=== PATIENT | male | born 1955 | race Caucasian/White ===

== ENCOUNTER 2019-01-29 01:41 | Inpatient (IN) | payer OTHER ==
--- NOTE | 2019-01-28 10:52 | HISTORY AND PHYSICAL ---
DATE OF ADMISSION: January 29, 2019 IDENTIFICATION/CHIEF COMPLAINT Pedro is a 63-year old gentleman with a chief complaint of bilateral knee pain. HISTORY OF PRESENT ILLNESS Patient has a longstanding history of bilateral knee arthritis, progressively painful and debilitating, refractor to conservative care. Surgery is indicated to relieve symptoms after failure of nonoperative measures. PAST MEDICAL HISTORY 1. Occasional skipped heartbeat. 2. History of wheezing and bronchitis and COPD. 3. Low back pain. PAST SURGICAL HISTORY Bilateral knee scopes. FAMILY HISTORY Notable for mother with hypertension. SOCIAL HISTORY Notable for smoking cigars and pipes until year 1999, at which point he quit. He drinks alcohol on a rare social basis. Denies drug use. REVIEW OF SYSTEMS Otherwise unremarkable. CURRENT MEDICATIONS 1. Naproxen 500 mg b.i.d. 2. Lisinopril/Hydrochlorothiazide 20/25 mg p.o. q.d. 3. Advair inhaler b.i.d. 4. Albuterol inhaler for rescue as needed. ALLERGIES No known drug allergies. PHYSICAL EXAMINATION GENERAL: Healthy male who appears appears stated age. HEENT: Normocephalic, atraumatic. NECK: Supple. LUNGS: Clear. HEART: Regular. ABDOMEN: Soft. ORTHOPEDIC EXAMINATION Both knees have crepitus and effusion. He is stiffened on range. Gross stability is good. Extensor function is intact. Radiographs demonstrate end- stage knee DJD bilaterally. ASSESSMENT 1. Bilateral knee end-stage degenerative joint disease, progressively painful and debilitating and refractory to conservative measures. PLAN Per patient request, we are going to proceed with single-stage bilateral knee replacement. The nature of the procedure and the risks, benefits and anticipated rehabilitation course were reviewed and all of patient's questions were answered. Again, we discussed the relative merits of single-stage versus staged knee replacements and he definitely wants to proceed with the single- stage if possible. The risks of the procedure include, but are not limited to, , major medical or anesthetic complication, infection, neurovascular injury, blood transfusion, stiffness, scarring, fracture, tendon rupture, instability, implant loosening, migration of failure, persistent or recurrent pain, need for additional surgery and other unforeseen. He understands and wishes to proceed. A signed permit is placed on the chart. No guarantees are given or implied. VINH
[2019-01-28 13:44] LABS: INR 0.95
[~2019-01-29] VITALS: Ht 175.3 cm; Wt 88.5 kg
[2019-01-29] VITALS (16 sets, daily range): BP systolic 82–128; BP diastolic 59–88
[~2019-01-29 01:41] MED LIST: ALBU8.5H IH; FLUT1DIS29 IH; LISI-355 PO
[2019-01-29] MEDS ORDERED: LIDOCAINE/SOD BICARB 8.4% SYR ID ONE (06:15)
[2019-01-29] MEDS ORDERED: MIDAZOLAM 2 MG/2 ML VIAL IVP PRN (06:15)
[2019-01-29] MEDS ORDERED: ROPIVACAINE/EPI/CLONIDINE/KET 50 ML SYRINGE INJ ONE ×2 (06:15)
[2019-01-29] MEDS ORDERED: ACETAMINOPHEN 500 MG TAB PO ONE (06:15)
[2019-01-29] MEDS ORDERED: PREGABALIN 150 MG CAPSULE PO ONE (06:15)
[2019-01-29] MEDS ORDERED: FAMOTIDINE 20 MG TAB PO ONE (06:15)
[2019-01-29] MEDS ORDERED: NORMOSOL R SOLN(*) 1000 ML BAG 1,000 ML IV PRN ×2 (06:15→10:55)
[2019-01-29] MEDS ORDERED: TRANEXAMIC AC 1000 MG/10ML SDV 1,000 MG in DEXTROSE 5% 50 ML BAG 50 ML IV ONE (06:15)
[2019-01-29] MEDS ORDERED: ceFAZolin(*) 2GM/D5W 50ML 50 ML IVPB ONE (06:15)
[2019-01-29] MEDS ORDERED: CELECOXIB 200 MG CAP PO ONE (06:15)
[2019-01-29] MEDS ORDERED: PROPOFOL EMUL(*) 10MG/ML 20 ML 20 ML ONE (06:28)
[2019-01-29] MEDS ORDERED: LIDOCAINE MPF 1% 5 ML VIAL ONE (06:28)
[2019-01-29] MEDS ORDERED: ONDANSETRON 4 MG/2 ML VIAL ONE (06:28)
[2019-01-29] MEDS ORDERED: METOCLOPRAMIDE 10 MG/2 ML SDV ONE (06:28)
[2019-01-29] MEDS ORDERED: DEXAMETHASONE SOD 4 MG/ML VIAL ONE (06:28)
[2019-01-29] MEDS ORDERED: fentaNYL CITR 100 MCG/2 ML AMP ONE ×3 (06:29→11:13)
[2019-01-29] MEDS ORDERED: NS(*) 0.9% 250 ML BAG 250 ML ONE (06:40)
[2019-01-29] MEDS ORDERED: VANCOMYCIN 1 GM VIAL ONE ×2 (06:59)
[2019-01-29] MEDS ORDERED: PHENYLEPHRINE 10 MG/1 ML VIAL ONE (07:20)
[2019-01-29] MEDS ORDERED: GLYCOPYRROLATE 0.2MG/ML 1 ML INJ ONE (07:26)
[2019-01-29] MEDS ORDERED: ZOLPIDEM TARTRATE 5 MG TAB PO PRN (10:55)
[2019-01-29] MEDS ORDERED: ACETAMINOPHEN 325 MG TAB PO PRN (10:55)
[2019-01-29] MEDS ORDERED: BENZOCAINE/MENTHOL 1 EACH LOZG PO PRN (10:55)
[2019-01-29] MEDS ORDERED: diphenhydrAMINE 25 MG CAP PO PRN (10:55)
[2019-01-29] MEDS ORDERED: BISACODYL 10 MG SUPP PR PRN (10:55)
[2019-01-29] MEDS ORDERED: FLUSH 10 ML SYR IVP PRN (10:55)
[2019-01-29] MEDS ORDERED: PROMETHAZINE 25 MG/ML 1 ML AMP IVP PRN (10:55)
[2019-01-29] MEDS ORDERED: diphenhydrAMINE 50 MG/ML VIAL IVP PRN (10:55)
[2019-01-29] MEDS ORDERED: NS(*) 0.9% 1000 ML BAG 1,000 ML IV PRN (11:00)
[2019-01-29] MEDS ORDERED: ACETAMINOPHEN(*)1000 MG/100 ML 100 ML IVPB ONE (11:16)
[2019-01-29] MEDS ORDERED: ALBUTEROL 8 GM INHALER INH PRN (12:50)
--- NOTE | 2019-01-29 13:05 | Hospitalist Consultation ---
History of Present Illness Requesting Physician Dr. Doshi Reason for Consult Medical Management of Comorbidities Chief Complaint s/p bilateral knee replacement History of Present Illness He was admitted s/p bilateral knee replacement. It is reported the surgery went well and without complication. History Problems: (1) Hypertension Status: Chronic (2) COPD (chronic obstructive pulmonary disease) Status: Chronic Home Meds Reported Medications Albuterol Sulfate 90 Mcg/Act (PROAIR HFA 90 MCG/ACT) 8.5 Gm Hfa.aer.ad, 2 PUFF IH PRN PRN for SHORTNESS OF BREATH, INHALER 01/24/19 Fluticasone/Salmeterol (ADVAIR 500-50 DISKUS) 1 Each Disk.w.dev, 1 EACH IH BID 01/24/19 Lisinopril/Hydrochlorothiazide (LISINOPRIL-HCTZ 20-25 MG TAB) 1 Each Tablet, 1 EACH PO DAILY 01/24/19 Allergies: Coded Allergies: No Known Drug Allergies (Unverified , 01/24/19) Patient History: Chronic bronchitis FATHER, FH: [place] (myocardial infarction) MOTHER, FH: hypertension MOTHER, Hx Smoking: Yes (CIGARS/PIPES QUIT 20 YRS AGO) Smoking Status: Former Smoker Caffeine Intake: Coffee, Soda Caffeine/Cups Per Day: 1-2 CCD Hx Alcohol Use: Yes Hx Substance Use Disorder: No Social Drug Use: Never History of IV Drug Use: No Review of Systems All Systems Reviewed/Normal: Yes, Except as Noted Exam Vital Signs Vital Signs Date Time Temp Pulse Resp B/P (MAP) Pulse Ox O2 Delivery O2 Flow Rate FiO2 01/29/19 12:26 96 Nasal Cannula 1.0 01/29/19 12:12 67 16 117/78 (91) 01/29/19 06:13 98.7 General Appearance: Alert, Awake, No Acute Distress, Afebrile Neuro: No Gross deficits Cardiovascular: Regular Rate and Rhythm Respiratory: No Respiratory Distress, Clear to Auscultation Psych: Alert & Oriented X3, Appropriate Mood & Affect Assessment and Plan Problems: (1) Status post bilateral knee replacements Status: Acute Assessment & Plan: Followed by Dr. Doshi. He will be placed on Aspirin for DVT prophylaxis. He has no history of DVT or PE. (2) Hypertension Status: Chronic Assessment & Plan: He is on chronic treatment with Lisinopril/HCTZ. Lisinopril has been restarted with hold parameters. (3) COPD (chronic obstructive pulmonary disease) Status: Chronic Assessment & Plan: Continue chronic Advair and prn albuterol inhaler. Venous Thromboembolism Antithrombotics Is Pt On Any Antithrombotics?: No Exam Sepsis Risk: No Definite Risk Problem Qualifiers (1) Hypertension: Hypertension type: essential hypertension Qualified Codes: I10 - Essential (primary) hypertension LOURDES HYATT Jan 29, 2019 13:05
[2019-01-29] MEDS: APAP/HYDROCODONE 325/7.5 TAB PO PRN ×2 (13:44→23:27)
--- NOTE | 2019-01-29 13:51 | NUR ---
Physical Therapy Impression PT eval complete. Pt completed bed mobility with Michelle. CGA to stand at EOB with RW and side step to HOB. CPM fit on R) LE and left running 0-35 degrees. VSS throughout session on room air. Pt would like to d/c to [facility]. Physical Therapy Goals 1: Pt to complete bed mobility with Penny 2: Pt to complete transfers with Penny and 4WW 3: Pt to ambulate 150' with Penny and 4WW 4: Pt to I)ly manage CPM 5: Pt to asc/desc 1 step with SBA Patient's Goals
--- NOTE | 2019-01-29 13:55 | RADIOLOGY IMAGING REPORT ---
FAC[place] [facility] [place]IENT NAME: Pedro Montoya : 1955 MR: [id number] V: [id number] EXAM DATE: ORDERING PHYSICIAN: JACINTO JOHNSON TECHNOLOGIST: Location: [facility] - [place] Patient: Pedro Montoya : 1955 Visit/Account:[id number] Date of Sevice: 01/29/2019 ADDENDUM #1 ADDENDUM: There is an error in the first sentence in the findings section of the report. I either spoke too jalyn ckly and there was a voice recognition error or possibly misspoke, but the patient has had bilateral KNEE replacements, not hip replacements. Report Dictated By: Myron Gonzalez MD at 02/01/2019 8:51 AM Report E-Signed By: Myron Gonzalez MD at 02/01/2019 8:53 AM ORIGINAL REPORT EXAMINATION: Bilateral knees, 2 views each 01/29/2019 10:21 AM HISTORY: POST-OP PLACEMENT COMPARISON: None available FINDINGS: Status post bilateral hip replacements. Prosthetic components appear to articulate well. There is ventral postoperative soft tissue gas including gas within the joints. No significant bony finding otherwise. IMPRESSION: Status post bilateral TKAs. Report Dictated By: Myron Gonzalez MD at 01/29/2019 1:45 PM Report E-Signed By: Myron Gonzalez MD at 01/29/2019 1:46 PM WSN:[id number]
--- NOTE | 2019-01-29 14:09 | OPERATIVE REPORT 1 ---
EVENT DATE: January 29, 2019 SURGEON: Silverio Doshi MD ANESTHESIOLOGIST: Arik Lacey MD ANESTHESIA: General plus spinal. LOCOMOTIVE CRANE ENGINEER: Dominic Watson PA-C PREOPERATIVE DIAGNOSIS Bilateral knee degenerative joint disease. POSTOPERATIVE DIAGNOSIS Bilateral knee degenerative joint disease. PROCEDURE PERFORMED Bilateral single-stage total knee arthroplasty. ESTIMATED BLOOD LOSS Minimal. DRAINS None. SPECIMENS None. COMPLICATIONS None apparent. TOURNIQUET TIME On the left, 49 minutes. On the right, 52 minutes. IMPLANTS USED The left and right are both [place] Triathlon knee system. On the left, we have a 4 left PS femur, 5 standard tibial baseplate, 33 mm universal symmetric all polyethylene patella button and a 16 mm PS tibial tray liner. On the right, we have a size 4 right PS femur, size 5 standard tibial baseplate, 33 mm universal symmetric all polyethylene patella button and a 13 mm PS tibial tray liner polyethylene X3. INDICATIONS Pedro has intractable pain and disability related to end-stage knee arthritis. Surgery is indicated to relieve symptoms after failure of nonoperative measures. DESCRIPTION OF PROCEDURE The patient was taken to the operating room and placed supine on the operating table. Spinal block was administered by the anesthesiologist and general anesthesia induced. Antibiotics and TXA were administered IV. Both lower extremities were simultaneously prepped and draped in the usual sterile fashion for orthopedic surgery. The left knee was operated on first. The limb was exsanguinated with an Esmarch bandage. The tourniquet was inflated to 250 mmHg. A midline longitudinal incision was made and carried down through the skin and subcutaneous tissue to the extensor mechanism. A full-thickness flap was developed far enough medially to allow medial parapatellar arthrotomy to be performed. The patella was everted. The knee was brought into a flexed position. This was done in a very gingerly fashion as the patient is extremely stiff and tight. Subperiosteal capsular release was performed circumferentially around the upper plateau to start to balance the knee. A step drill was used to enter the distal femur. A 10-inch long alignment guide was used to engage the isthmus. Cut was set for 5 degrees of valgus relative to the anatomic axis. A 10 mm resection block was applied and pinned. Cut was made with an oscillating saw. The AP sizing guide was applied to the distal femoral cut and positioned for 3 degrees of external rotation relative to the posterior condyles. A size 4 was optimal without risk of notching. The four-in-one cutting block was applied. Anterior, posterior, posterior chamfer and anterior chamfer cuts were made respectively. A PS block was applied and centered mediolateral and the bone was resected from the box. The trial femur has nice [id number] fit. Attention was turned to tibial preparation. The extramedullary guide was applied and positioned for varus, valgus, posterior slope and rotation. He has severe symmetric erosion. The cutting block was initially set to resect 10 mm from the lateral plateau. It needs to be dropped down a little bit to show an adequate cut medially. Block is pinned. Extramedullary alignment check was made and the cut was made with an oscillating saw. The gaps were inspected at this point and appears to be adequate resection. There is an enormous amount of large osteophytes in the posterior recess. Three-quarter inch curved osteotome was used to release these off the back of the femur and these are removed, freeing up posterior recess. At this point, after osteophyte removal, gaps were balanced and resected and symmetric with no additional release required. A 5 baseplate provides optimal bony coverage on the tibia without soft tissue overhand. This was ensured along with trial liner and trial femur. The knee was brought to extension. The patella was taken from a starting thickness of 23 mm to a residual of 14 with patella clamp and oscillating saw. 33 provides optimum bony coverage without soft tissue overhang. This was placed as superior and medial as possible without overhanging the bone. Lug holes were drilled. Patella tracks nicely with a no-touch technique. Final tibial preparation to ensure appropriate rotation and translation position of component. The box was reamed. The fin is punched. The surface was lavaged. A mixture of methacrylate was made and components cemented in a single stage. Once the cement was fully polymerized, the tourniquet was deflated. Hemostasis was assured. Wound was copiously lavaged to remove all loose debris. The 16 PS tibial tray liner fills up the gap ideally, allowing the knee to drop to full extension without hyperextension, providing optimal soft tissue tension and stability. This is locked in at the baseplate. Joint was reduced and arthrotomy was closed in flexion with #2 Ethibond. After deep closure, attention was turned to the contralateral knee. Continuing on the left knee, the wound was closed with 3-0 Vicryl and the skin with a ZipLine. Identical procedure was performed on the right knee with essentially one exception, which is that a 13 PS tibial tray liner fills up the gap ideally, allowing the knee to drop to full extension without hyperextension, providing optimal soft tissue tension and stability. Otherwise, an identical procedure was performed on the right knee. The left knee was protected in a sterile stockinette during the right knee procedure and then both knees were sterilely dressed at the end of the procedure. The patient was awakened from the anesthesia and taken to the recovery room in stable condition, having tolerated the procedure well. Plan is standard TKA rehab protocol. VINH
[2019-01-29] MEDS ORDERED: ALBUTEROL SULFATE INH PRN (15:25)
[2019-01-29] MEDS: MAGNESIUM HYDROXIDE* 30ML UDCP PO PRN (15:28)
[2019-01-29] MEDS: ceFAZolin(*) 1 GM VIAL 1 GM in NS(*) 0.9% 100 ML MINI-BAG 100 ML IVPB SCH ×2 (15:28→23:19)
[2019-01-29] MEDS: SALMETEROL/FLUTIC 500/50 1 INH INH SCH (17:08)
[2019-01-29] MEDS: CELECOXIB 200 MG CAP PO SCH (17:47)
[2019-01-30 02:57] VITALS: BP 114/77
[2019-01-30] MEDS: APAP/HYDROCODONE 325/7.5 TAB PO PRN ×5 (03:43→21:25)
[2019-01-30] MEDS: SALMETEROL/FLUTIC 500/50 1 INH INH SCH ×2 (06:13→17:11)
[2019-01-30 06:33] LABS: PLATELET COUNT, AUTOMATED 257 K/uL (150-450)
[2019-01-30] MEDS: ceFAZolin(*) 1 GM VIAL 1 GM in NS(*) 0.9% 100 ML MINI-BAG 100 ML IVPB SCH (06:34)
[2019-01-30 08:12] VITALS: BP 112/73
[2019-01-30] MEDS: ASPIRIN 325 MG TAB PO SCH (08:21)
[2019-01-30] MEDS: CELECOXIB 200 MG CAP PO SCH ×2 (08:21→16:53)
[2019-01-30] MEDS: LISINOPRIL 20 MG TAB PO SCH (08:21)
--- NOTE | 2019-01-30 09:27 | NUR ---
Physical Therapy Impression Patient presents in bed and is agreeable to therapy. Patient was SBA with getting out of bed. Patient was CGA for toilet transfer. Patient instructed in gait training with FWW with cuing to stand tall and stay close to walker. Patient ambulated ~110 feet with step through gait and decreased ioana. Patient was left in bathroom on toilet with call light and nursing notified. Physical Therapy Goals 1: Pt to complete bed mobility with Penny 2: Pt to complete transfers with Penny and 4WW 3: Pt to ambulate 150' with Penny and 4WW 4: Pt to I)ly manage CPM 5: Pt to asc/desc 1 step with SBA Patient's Goals
--- NOTE | 2019-01-30 09:37 | Hospitalist Progress Note ---
Subjective Progress Notes Subjective He was admitted s/p bilateral knee replacement. He had no acute events overnight. Patient Complains of: Cardiovascular: No: Chest Pain Respiratory: No: Shortness of Breath Physical Exam Vital Signs Date Time Temp Pulse Resp B/P (MAP) Pulse Ox O2 Delivery O2 Flow Rate FiO2 01/30/19 08:42 87 01/30/19 08:32 Nasal Cannula 0.5 01/30/19 08:12 97.9 17 112/73 (86) 01/30/19 02:57 72 Intake and Output 01/30/19 01:03 Intake Total 4025 ml Output Total 450 ml Balance 3575 ml Intake Oral 1620 ml IV Total 2155 ml Other 250 ml Output Urine Total 450 ml Estimated Blood Loss 0 ml # Voids 1 General Appearance: Alert, Awake, No Acute Distress, Afebrile Neuro: No Gross deficits Cardiovascular: Regular Rate and Rhythm Respiratory: No Respiratory Distress, Clear to Auscultation Psych: Alert & Oriented X3, Appropriate Mood & Affect Result Diagram: 01/30/19 0550 Assessment and Plan Problems: (1) Status post bilateral knee replacements Status: Acute Assessment & Plan: Followed by Dr. Doshi. He will be placed on Aspirin for DVT prophylaxis. He has no history of DVT or PE. (2) Hypertension Status: Chronic Assessment & Plan: He is on chronic treatment with Lisinopril/HCTZ. Lisinopril has been restarted with hold parameters. (3) COPD (chronic obstructive pulmonary disease) Status: Chronic Assessment & Plan: Continue chronic Advair and prn albuterol inhaler. Exam Sepsis Risk: No Definite Risk Problem Qualifiers (1) Hypertension: Hypertension type: essential hypertension Qualified Codes: I10 - Essential (primary) hypertension LOURDES HYATT ENGLISH COMPOSITION TEACHER Jan 30, 2019 09:37
[2019-01-30 11:59] VITALS: BP 125/73
[2019-01-30 12:03] VITALS: Ht 175.3 cm; Wt 88.5 kg
--- NOTE | 2019-01-30 13:22 | NUR ---
Physical Therapy Impression Patient is CGA for bed mobility and CGA to min A for transfers with mod cuing to pull his feet back and bracing of B feet for safety to decrease ROF. Patient has AROM of 0 to ~70 degrees B knees. Patient was educated on use of CPM and was able to demonstrate use of control and was set at 0 to 40 degrees. Patient performed supine bed exercises including B ankle pumps, quad and glute sets, SAQs, and heel slides all x 10 reps with 5 second hold on quad and glute sets. Patient instructed in gait training with FWW with cuing for posture and increased B equal step length. Patient needed CGA for safety due to decreased balance and increased risk of falling due to B TKA. Patient would benefit from computer terminal operator care due to the increased risk of falling due to balance issues with having B TKA's. Patient does live alone which is a risk factor for risk of falling. Physical Therapy Goals 1: Pt to complete bed mobility with Penny 2: Pt to complete transfers with Penny and 4WW 3: Pt to ambulate 150' with Penny and 4WW 4: Pt to I)ly manage CPM 5: Pt to asc/desc 1 step with SBA Patient's Goals
[2019-01-30] MEDS: DIAZEPAM 5 MG TAB PO PRN ×2 (15:36→22:33)
[2019-01-30 15:37] VITALS: BP 119/69
[2019-01-30] MEDS: MAGNESIUM HYDROXIDE* 30ML UDCP PO PRN (15:46)
[2019-01-30 20:23] VITALS: BP 124/67
[2019-01-31 00:25] VITALS: BP 116/57
[2019-01-31] MEDS: APAP/HYDROCODONE 325/7.5 TAB PO PRN ×3 (01:26→10:10)
[2019-01-31 04:05] VITALS: BP 128/72
[2019-01-31] MEDS: DIAZEPAM 5 MG TAB PO PRN (04:30)
[2019-01-31] MEDS: SALMETEROL/FLUTIC 500/50 1 INH INH SCH (05:34)
[2019-01-31 06:31] LABS: PLATELET COUNT, AUTOMATED 217 K/uL (150-450)
[2019-01-31 07:28] VITALS: BP 123/71
[2019-01-31] MEDS: LISINOPRIL 20 MG TAB PO SCH (08:49)
[2019-01-31] MEDS: ASPIRIN 325 MG TAB PO SCH (08:49)
[2019-01-31] MEDS: CELECOXIB 200 MG CAP PO SCH (08:49)
--- NOTE | 2019-01-31 10:14 | NUR ---
ECF Referral - Obtained preauthorization for 8 days of skilled rehab. Met with patient who stated he would need much more than that, explained the rehab philosophy, schedule, care conference etc. Encouraged to not focus on how long he can stay but how much better he can become. Seemed fixated on only having 8 days, "If I had known, I wouldn't have done so well yesterday." Discussed progress needing to be made, not to worry, just focus on improving. PASRR negative - can be admitted for skilled rehab once medically cleared.
--- NOTE | 2019-01-31 11:45 | Transfer Summary (ECF/SWB) ---
Transfer Summary (ECF/SWB) Problems: (1) Status post bilateral knee replacements Status: Acute Assessment & Plan: Followed by Dr. Doshi. He was placed on Aspirin for DVT prophylaxis. He has no history of DVT or PE. He has decreased hemoglobin post- operatively, will continue to monitor on ECF. (2) Hypertension Status: Chronic Assessment & Plan: He is on chronic treatment with Lisinopril/HCTZ. Lisinopril has been restarted with hold parameters. (3) COPD (chronic obstructive pulmonary disease) Status: Chronic Assessment & Plan: Continue chronic Advair and prn albuterol inhaler. Latest Vital Signs Vital Signs Date Time Temp Pulse Resp B/P (MAP) Pulse Ox O2 Delivery O2 Flow Rate FiO2 01/31/19 10:44 89 Room Air 01/31/19 07:28 98.0 75 16 123/71 (88) Result Diagram: 01/31/19 0534 Condition: Improved Disposition: SNF/NH Treatment Goals and Plan Patient requires alf and/or skilled rehabilitation with the goal to increase independence with ADL's, functional strength and mobility. Continue and adjust medication regimen. Services Required: PT, OT Problem Qualifiers (1) Hypertension: Hypertension type: essential hypertension Qualified Codes: I10 - Essential (primary) hypertension LOURDES HYATT Jan 31, 2019 11:45
== END 2019-01-31 11:20 | DRG 462 ==
LOC: OR 01:41 → MED 12:05
PROVIDERS: ADMIT Orthopaedic Surgery; ATTEND Orthopaedic Surgery
PROC: 0SRC0J9 Replacement of Right Knee Joint with Synthetic Substitute, Cemented, Open Approach (ICD-10-PCS; 2019-01-29)
PROC: 0SRD0J9 Replacement of Left Knee Joint with Synthetic Substitute, Cemented, Open Approach (ICD-10-PCS; principal; 2019-01-29 07:15)
DX: M17.0 Bilateral primary osteoarthritis of knee (principal); I10 Essential (primary) hypertension; J44.9 Chronic obstructive pulmonary disease, unspecified; Z87.891 Personal history of nicotine dependence
CPT/HCPCS: 36415; 85025; 85610; 86850; 86900; 86901; 94640; 94667; 97161; C1713; C1776; J0131; J0690; J1100; J2001; J2250; J2370; J2405; J2704; J2765; J3010; J3370; J3490; J7050; J7060

== ENCOUNTER 2019-01-31 11:26 | Inpatient (IN) | payer OTHER ==
[2019-01-30 12:03] VITALS: Ht 175.3 cm; Wt 91.2 kg
[~2019-01-31] VITALS: Ht 175.3 cm; Wt 91.2 kg
[2019-01-31] MEDS ORDERED: MAGNESIUM HYDROXIDE* 30ML UDCP PO PRN (12:01)
[2019-01-31] MEDS ORDERED: BISACODYL 10 MG SUPP PR PRN (12:01)
[2019-01-31] MEDS ORDERED: ALBUTEROL SULFATE INH PRN (12:01)
[2019-01-31] MEDS ORDERED: CELECOXIB 200 MG CAP PO SCH (12:01)
[2019-01-31] MEDS ORDERED: ACETAMINOPHEN 325 MG TAB PO PRN (12:01)
[2019-01-31 12:31] VITALS: BP 128/68
--- NOTE | 2019-01-31 13:09 | PT ECF NOTE ---
Type of Note: Initial Eval Primary Medical Diagnosis: Bilateral TKA Physical Therapy Evaluation Date: 01/31/2019 SUBJECTIVE: Prior Hospitalization: 01/26/2019-01/31/2019 Prior Level of Function: I) with no AD Prior Living Status: Pt reports 1 step to enter home, he lives alone Home Accessibility: One step to enter Equipment Owned: Pt owns 4WW Medical Complications/Past Medical History: See EMR Psychosocial Support: Supportive friends, lives alone Pain Scale (0-10): OBJECTIVE: Strength: Right Lower Extremity: DF: wnl Knee flexion: <3/5 Knee extension: <3/5 Hip flexion: >3/5 Left Lower Extremity: DF: wnl Knee flexion: <3/5 Knee extension: <3/5 Hip flexion: >3/5 ROM: R) knee ext/flex: 5 degrees - 64 degree (AROM) 69 degrees (PROM) L) knee ext/flex: 5 degrees - 66 degree (AROM) 70 degrees (PROM) Sensation: Not assessed d/t dressings Bed Mobility: Michelle sit to supine Transfers: CGA with RW Gait: CGA x150' with RW Stairs: NT 10 meter walk test (0.6m/second cannot function independently): 0.24 m/sec ASSESSMENT: PT ECF eval complete. Pt requires CGA for STS transfers with RW, Michelle for bed mobility and CGA ambulation x150' with RW. Pt ambulates with a slowed gait speed, indicating increased fall risk. Pt presents with increased need of assistance from others and decreased independence. He will benefit from skilled PT services in order to improve tolerance to functional mobility and increase safety prior to d/c home. Pt plans to d/c home alone with OP PT services in place. Problem List/Current Limitations: Pain, decreased ROM, decreased strength, decreased balance, decreased activity tolerance Short Term Goals: 1: Pt to complete bed mobility with Penny 2: Pt to complete transfers with Penny and 4WW 3: Pt to ambulate 250' with Penny and 4WW 4: Pt to I)ly manage CPM 5: Pt to asc/desc 1 step with Penny 6: Pt to ambulate 10' on uneven surface with Penny 7: Pt to asc/desc 4 step with Penny to simulate entry into nephew's home Ion Exchange Operator Goals: Discharge home with OP PT services Patient Goals: " Discharge home with adequate independence to do OP therapy" Rehabilitation Prognosis: Good Barriers for Discharge: None seen at this time PLAN: The patient will benefit from skilled physical therapy services 5 times per week for 2 weeks including: ther ex, gait, transfer training, bed mobility, manual therapy, neuro-re ed, ther act, stair training Thank you for this referral. If you have any questions, concerns, or comments about this report or plan, please contact me at . Belkys Kelly, PT, DPT [facility]
--- NOTE | 2019-01-31 13:47 | Consultant Pharmacy Review ---
Linen Worker Review Medication Review Do All Mecications have a Diag: Yes Other General Cautions 1- Patient on Aspirin 325 mg Qday for post-op VTE prophylaxis and on Celebrex 200 mg BID for pain. This combination is not recommended for aspirin doses > 81 mg as this may negate any GI benefit of the WALLER-2 inhibitor. Ordering provider was contacted and frequency was changed to Qday. Please monitor for signs and symptoms of GI ulceration/bleeding 2- Lortab and Valium are ordered. Please monitor patient for signs and symptoms of excessive ANIMAL HUSBANDRY TEACHER depression (slower or difficult breathing and sedation) KAIT OVIEDO V Jan 31, 2019 13:47
--- NOTE | 2019-01-31 13:49 | NUR ---
Physical Therapy Impression PT ECF eval complete. Pt requires CGA for STS transfers with RW, Michelle for bed mobility and CGA ambulation x150' with RW. Pt ambulates with a slowed gait speed, indicating increased fall risk. Pt presents with increased need of assistance from others and decreased independence. He will benefit from skilled PT services in order to improve tolerance to functional mobility and increase safety prior to d/c home. Pt plans to d/c home alone with OP PT services in place. Physical Therapy Goals 1: Pt to complete bed mobility with Penny 2: Pt to complete transfers with Penny and 4WW 3: Pt to ambulate 250' with Penny and 4WW 4: Pt to I)ly manage CPM 5: Pt to asc/desc 1 step with Penny 6: Pt to ambulate 10' on uneven surface with Penny 7: Pt to asc/desc 4 steps with Penny to simulate entry into nephew's home Patient's Goals
[2019-01-31] MEDS: APAP/HYDROCODONE 325/7.5 TAB PO PRN ×2 (14:17→20:45)
[2019-01-31] MEDS: DIAZEPAM 5 MG TAB PO PRN (16:29)
[2019-01-31] MEDS: SALMETEROL/FLUTIC 500/50 1 INH INH SCH (17:58)
[2019-02-01] MEDS: DIAZEPAM 5 MG TAB PO PRN (01:16)
[2019-02-01] MEDS: APAP/HYDROCODONE 325/7.5 TAB PO PRN ×4 (01:55→22:34)
[2019-02-01] MEDS: SALMETEROL/FLUTIC 500/50 1 INH INH SCH ×2 (05:32→17:32)
[2019-02-01 07:01] LABS: PLATELET COUNT, AUTOMATED 250 K/uL (150-450)
[2019-02-01 07:07] VITALS: BP 109/68
[2019-02-01] MEDS ORDERED: HYPROMELLOSE 0.4% LUB 15ML BTL OD PRN (08:00)
--- NOTE | 2019-02-01 08:09 | OT ECF NOTE ---
Type of Note: Initial Note Primary Medical Diagnosis: Generalized weakness s/p bilateral total knee replacements Occupational Therapy Evaluation Date: 02/01/19 SUBJECTIVE: Prior Hospitalization: [facility] 01/29/19-01/31/19 Prior Level of Function: Independent with all ADLs/IADLs. Ambulating with no assistive device. Occasional assist from family for transportation. Pt drives a manual. Prior Living Status: Single level house, Alone Community Services: No known needs Home Accessibility: One step into home All needs on one level Tub/shower combination Equipment Owned: Rollator-Pt reports tight space in home to navigate with 4WW Toilet riser Medical Complications/Past Medical History: HTN, COPD Psychosocial Support: Family in [place] where pt resides Pain Scale (0-10): 2/10 with functional mobility on day of evaluation OBJECTIVE: Strength: MMT: Right Left Shoulder Flexion WFL WFL Elbow Flexion WFL WFL Wrist Extension WFL WFL Liaison Inspection Laboratory Assistant WFL WFL (5= normal, 4= good, 3= fair, 2= poor, 1= trace) ROM: Both upper extremities, WFL Sensation: No paraesthesia reported Functional Transfer: Assistive Device: Front wheeled walker, Gait belt Transfer Ability: CGA ADL: Upper body dressing: Assistive device: Upper body dressing ability: N/T Lower body dressing: Assistive device: Lower body dressing ability: Maximum assistance Toileting: Assistive device: Toileting ability: CGA Grooming/hygiene: Assistive device: Grooming ability: N/T Bathing: Assistive device: Bathing ability: N/T Standardized Assessment: Willow Index of Activities of Daily Livin/20 upon initial evaluation (01/31/19). ASSESSMENT: "Chance" presents to [facility] with decreased activity tolerance and independence for IADLs s/p bilateral total knee replacements. He will benefit from skilled OT services to improve endurance and optimize independence for ADLs/IADLs prior to discharge home alone. Problem List/Current Limitations: Pain Decreased ROM Short Term Goals: 1) Pt will be Mod (I) UB/LB dressing. 2) Pt will be Mod (I) toilet task. 3) Pt will be Mod (I) grooming/hygiene standing. 4) Pt will be Mod (I) shower task with bathtub transfer. 5) Pt will be Mod (I) light meal prep task. 6) Pt Willow Index of ADLs score will improve by two points. 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 If you have any questions, concerns, or comments about this report or plan, please contact me at . Connie Yu MS, OTR/L Occupational Therapist VINH
[2019-02-01] MEDS: LISINOPRIL 20 MG TAB PO SCH (09:00)
[2019-02-01] MEDS: ASPIRIN 325 MG TAB PO SCH (09:12)
[2019-02-01] MEDS: CELECOXIB 200 MG CAP PO SCH (09:12)
--- NOTE | 2019-02-01 12:44 | NUR ---
Occupational Therapy Impression SBA supine to sit. SBA ambulation x50ft, x40ft, x50ft, x40ft with RW. Stepping up onto standing scale with CGA. VSS throughout. SBA toileting. SBA oral care sinkfront [id number]. SBA LB dressing with cues for use of lower body AE. Pt progressing well towards goals. Continue POC. Occupational Therapy Goals 1) Pt will be Mod (I) UB/LB dressing. 2) Pt will be Mod (I) toilet task. 3) Pt will be Mod (I) grooming/hygiene standing. 4) Pt will be Mod (I) shower task with bathtub transfer. 5) Pt will be Mod (I) light meal prep task. 6) Pt Willow Index of ADLs score will improve by two points. Patient's Goal
--- NOTE | 2019-02-01 13:32 | NUR ---
Physical Therapy Impression Patient is SBA for transfer from sit to stand with cuing to pull knees back when standing. Some manual overpressure with quad sets and with heel slides to improve ext and flex, patient performed B quad and glute sets x 10, ankle pumps x 20, SAQ x 10 with 5 second hold. Patient ambulated to and from therapy ~[address] with cuing to stand tall and stay close to walker and for increased step length. Patient had step to gait for about the first twenty feet but improved after that to step through gait. Patient was left in room on toilet with call light and nursing notified. Physical Therapy Goals 1: Pt to complete bed mobility with Penny 2: Pt to complete transfers with Penny and 4WW 3: Pt to ambulate 250' with Penny and 4WW 4: Pt to I)ly manage CPM 5: Pt to asc/desc 1 step with Penny 6: Pt to ambulate 10' on uneven surface with Penny 7: Pt to asc/desc 4 steps with Penny to simulate entry into nephew's home Patient's Goals
--- NOTE | 2019-02-01 15:11 | Medical Nutrition Therapy ---
Nutrition Anthropometrics Height (Inches): 69.00 Height (Calculated Centimeters: 175.145962 Weight (Pounds): 208 Weight (Calculated Kilograms): 94.347 BMI: 30.7 Kelvin Nutrition Score: Adequate Kelvin Nutrition Risk Score: 18 Dietary Referral Nutrition Risk Factors: Nutrition Risk Comment: Physical Findings Physical Appearance: Obese BMI 30-39 Skin Appearance Skin Appearance: Edema Edema Location Modifier: Both Edema Location: Leg Type of Edema: Degree of Edema: 1+ Gastrointestinal Symptoms GI Symtoms: Change in Bowel Pattern Tube Present: Bowel Sounds: Recent Bowel Pattern: Constipated Stool Characteristics: Nutrition/Food History Good Nutritional Diagnosis Nutritional Risk Acuity 4: Good Appetite Nutritional Acuity: 4-Low Energy Requirement: 2167 Protein Requirement: 89 (1g/kg) Fluid Requirement: 2167 Diet Type: Diet as Tolerated SARAH/REG Nutrition Intervention: Encourage intake, Teaching Nutrition Monitoring & Eval Nutrition Follow-Up: Good Intake Nutrition Monitoring: Weight, Protein Intake RD Patient Assessment Time: [address] Assessment Type: RD Assessment Patient Nutrition Acuity: 4-Low Follow Up Date: Feb 05, 2019 Nutritional Comment: 02/01/19: Spoke with pt this afternoon. Pt admitted to ECF for strengthening s/p bilateral knee replacement. Significant PMH includes HTN and COPD. Current pertinent rx include dulcolax and MOM. Did have some issues with constipation, however, had a BM this am. His usual body weight is 200 lbs. Noted significant difference in weight between med/surg and ECF. Requested new weight on standing scale instead of bed scale weight. Discussed importance of drinking plenty of fluids to prevent constipation. Discussed importance of getting adequate protein for healing s/p knee replacement. Pt was eating well on Med/Surg 100% average, continues to eat well on ECF. Will continue to monitor wt, protein intake.SUSANNAH LAI Feb 01, 2019 15:11
[2019-02-01 19:00] VITALS: BP 128/70
[2019-02-02] MEDS: DIAZEPAM 5 MG TAB PO PRN (00:44)
[2019-02-02] MEDS: APAP/HYDROCODONE 325/7.5 TAB PO PRN ×4 (03:02→20:37)
[2019-02-02] MEDS: SALMETEROL/FLUTIC 500/50 1 INH INH SCH ×2 (05:39→17:13)
[2019-02-02 07:49] VITALS: BP 109/68
[2019-02-02] MEDS: LISINOPRIL 20 MG TAB PO SCH (08:58)
[2019-02-02] MEDS: ASPIRIN 325 MG TAB PO SCH (08:58)
[2019-02-02] MEDS: CELECOXIB 200 MG CAP PO SCH (09:00)
[2019-02-02 13:50] LABS: PLATELET COUNT, AUTOMATED 314 K/uL (150-450)
[2019-02-02] MEDS ORDERED: HYPROMELLOSE 0.4% LUB 15ML BTL OD PRN (14:35)
[2019-02-02] MEDS ORDERED: POLYVINYL ALCOHOL 15 ML DROPS OP PRN (14:35)
[2019-02-02 15:23] VITALS: BP 101/66
[2019-02-03] MEDS: APAP/HYDROCODONE 325/7.5 TAB PO PRN ×4 (01:23→18:32)
[2019-02-03] MEDS: DIAZEPAM 5 MG TAB PO PRN ×2 (01:23→22:28)
[2019-02-03] MEDS: SALMETEROL/FLUTIC 500/50 1 INH INH SCH ×2 (05:24→17:12)
[2019-02-03 07:24] VITALS: BP 115/76
[2019-02-03] MEDS: ASPIRIN 325 MG TAB PO SCH (08:52)
[2019-02-03] MEDS: LISINOPRIL 20 MG TAB PO SCH (08:52)
[2019-02-03] MEDS: CELECOXIB 200 MG CAP PO SCH (08:53)
[2019-02-03 16:08] VITALS: BP 103/66
[2019-02-04] MEDS: APAP/HYDROCODONE 325/7.5 TAB PO PRN ×4 (01:15→19:25)
[2019-02-04] MEDS: SALMETEROL/FLUTIC 500/50 1 INH INH SCH ×2 (05:19→17:07)
[2019-02-04 07:15] VITALS: BP 117/69
[2019-02-04] MEDS: CELECOXIB 200 MG CAP PO SCH (08:22)
[2019-02-04] MEDS: ASPIRIN 325 MG TAB PO SCH (08:22)
[2019-02-04] MEDS: LISINOPRIL 20 MG TAB PO SCH (08:23)
--- NOTE | 2019-02-04 09:05 | NUR ---
Physical Therapy Impression Patient needs cuing to pull his knees back and bend his knees more with transfers. Patient is SBA with transfers and I with toileting. Patient instructed in gait training to and from gym ~ [address] with cuing for posture and proper hand placement on walker. Patient performed B LE's in supine and standing B HR, hip abd flex and ext. Patient educated in pushing himself with AROM on exercises and using his hands for overpressure with ext and bending his knees with sitting. Patient ROM is improving and so is his activity tolerance. Physical Therapy Goals 1: Pt to complete bed mobility with Penny 2: Pt to complete transfers with Penny and 4WW 3: Pt to ambulate 250' with Penny and 4WW 4: Pt to I)ly manage CPM 5: Pt to asc/desc 1 step with Penny 6: Pt to ambulate 10' on uneven surface with Penny 7: Pt to asc/desc 4 steps with Penny to simulate entry into nephew's home Patient's Goals
--- NOTE | 2019-02-04 12:02 | NUR ---
Occupational Therapy Impression Mod (I) ambulation with RW during functional ADLs. Trialed various methods for donning/doffing jailene hose, pt able to complete (I)ly with no adaptive equipment. Modified Independent toileting. Independent grooming standing sinkfront [id number]. Pt progressing well towards OT goals. Occupational Therapy Goals 1) Pt will be Mod (I) UB/LB dressing. 2) Pt will be Mod (I) toilet task. 3) Pt will be Mod (I) grooming/hygiene standing. 4) Pt will be Mod (I) shower task with bathtub transfer. 5) Pt will be Mod (I) light meal prep task. 6) Pt Willow Index of ADLs score will improve by two points. Patient's Goal
--- NOTE | 2019-02-04 13:01 | Hospitalist Progress Note ---
Subjective Progress Notes Subjective No new complaints. Physical Exam Vital Signs Date Time Temp Pulse Resp B/P (MAP) Pulse Ox O2 Delivery O2 Flow Rate FiO2 02/04/19 08:20 92 Room Air 02/04/19 07:15 98.9 81 17 117/69 (85) 02/02/19 05:39 21.0 Intake and Output 02/04/19 07:03 Intake Total 600 ml Balance 600 ml Intake Oral 600 ml # Voids 8 # Bowel Movements 6 General Appearance: Alert, Awake, No Acute Distress Neuro: No Gross deficits Cardiovascular: Regular Rate and Rhythm Respiratory: Clear to Auscultation Extremities: Warm, Perfused Psych: Appropriate Mood & Affect Result Diagram: 02/02/19 5523 Assessment and Plan Problems: (1) Status post bilateral knee replacements Status: Acute Assessment & Plan: Bilateral TKAs with Dr. Doshi. He was placed on Aspirin for DVT prophylaxis. He has no history of DVT or PE. He had anemia post-operatively. (2) Hypertension Status: Chronic Assessment & Plan: He is on chronic treatment with Lisinopril/HCTZ. Lisinopril has been restarted with hold parameters but his BP has remained normal off of medications so he has not received lisinopril on ECF to date. (3) COPD (chronic obstructive pulmonary disease) Status: Chronic Assessment & Plan: Continue chronic Advair and prn albuterol inhaler. Time Spent on Plan of Care: < 30 min LENY CISNEROS MD Feb 04, 2019 13:01
--- NOTE | 2019-02-04 13:33 | ECF History & Physical ---
Transfer Summary (ECF/SWB) Problems: (1) Status post bilateral knee replacements Status: Acute Assessment & Plan: Followed by Dr. Doshi. He was placed on Aspirin for DVT prophylaxis. He has no history of DVT or PE. He has decreased hemoglobin post- operatively, will continue to monitor on ECF. (2) Hypertension Status: Chronic Assessment & Plan: He is on chronic treatment with Lisinopril/HCTZ. Lisinopril has been restarted with hold parameters. (3) COPD (chronic obstructive pulmonary disease) Status: Chronic Assessment & Plan: Continue chronic Advair and prn albuterol inhaler. Latest Vital Signs Vital Signs Date Time Temp Pulse Resp B/P (MAP) Pulse Ox O2 Delivery O2 Flow Rate FiO2 01/31/19 10:44 89 Room Air 01/31/19 07:28 98.0 75 16 123/71 (88) Result Diagram: 01/31/19 0534 Condition: Improved Disposition: SNF/NH Treatment Goals and Plan Patient requires intermediate and/or skilled rehabilitation with the goal to increase independence with ADL's, functional strength and mobility. Continue and adjust medication regimen. Services Required: PT, OT Problem Qualifiers (1) Hypertension: Hypertension type: essential hypertension Qualified Codes: I10 - Essential (primary) hypertension LOURDES HYATT Jan 31, 2019 11:45 <Electronically signed by ZULMA SCHULTE> D/ [id number] ILEANA/MARTIN CC: VINH
--- NOTE | 2019-02-04 16:12 | Medical Nutrition Therapy ---
Nutrition Anthropometrics Height (Inches): 69.00 Height (Calculated Centimeters: 175.213842 Weight (Pounds): 208 Weight (Calculated Kilograms): 94.347 BMI: 30.7 Kelvin Nutrition Score: Adequate Kelvin Nutrition Risk Score: 18 Dietary Referral Nutrition Risk Factors: Nutrition Risk Comment: Physical Findings Physical Appearance: Obese BMI 30-39 Skin Appearance Skin Appearance: Edema Edema Location Modifier: Both Edema Location: Leg Type of Edema: Degree of Edema: 1+ Gastrointestinal Symptoms GI Symtoms: Change in Bowel Pattern Tube Present: Bowel Sounds: Recent Bowel Pattern: Constipated Stool Characteristics: Nutritional Diagnosis Nutritional Risk Acuity 4: Good Appetite Nutritional Acuity: 4-Low Energy Requirement: 2167 Protein Requirement: 89 (1g/kg) Fluid Requirement: 2167 Diet Type: Diet as Tolerated SARAH/REG Nutrition Intervention: Encourage intake, Teaching Nutrition Monitoring & Eval Nutrition Goals: Eat 75-100% Meal Nutrition Follow-Up: Good Intake Nutrition Monitoring: Intake, Weight RD Patient Assessment Time: [address] Assessment Type: RD Assessment Patient Nutrition Acuity: 4-Low Follow Up Date: Feb 12, 2019 Nutritional Comment: 02/01/19: Spoke with pt this afternoon. Pt admitted to ECF for strengthening s/p bilateral knee replacement. Significant PMH includes HTN and COPD. Current pertinent rx include dulcolax and MOM. Did have some issues with constipation, however, had a BM this am. His usual body weight is 200 lbs. Noted significant difference in weight between med/surg and ECF. Requested new weight on standing scale instead of bed scale weight. Discussed importance of drinking plenty of fluids to prevent constipation. Discussed importance of getting adequate protein for healing s/p knee replacement. Pt was eating well on Med/Surg 100% average, continues to eat well on ECF. Will continue to monitor wt, protein intake.[place] 02/04/19: Pt is eating well 100% average meal intake. Currently on dulcolax and MOM for constipation had large BM 02/04. Will continue to monitor wt, intake, need for additional diet education.SUSANNAH LAI Feb 04, 2019 12:37
[2019-02-04 16:30] VITALS: BP 116/62
[2019-02-05] MEDS: APAP/HYDROCODONE 325/7.5 TAB PO PRN ×3 (03:33→21:13)
[2019-02-05] MEDS: SALMETEROL/FLUTIC 500/50 1 INH INH SCH ×2 (05:41→17:47)
[2019-02-05 06:29] LABS: PLATELET COUNT, AUTOMATED 407 K/uL (150-450)
[2019-02-05 07:05] VITALS: BP 118/73
[2019-02-05 07:43] VITALS: BP 118/73
[2019-02-05] MEDS: LISINOPRIL 20 MG TAB PO SCH (08:53)
[2019-02-05] MEDS: ASPIRIN 325 MG TAB PO SCH (08:55)
[2019-02-05] MEDS: CELECOXIB 200 MG CAP PO SCH (08:58)
--- NOTE | 2019-02-05 11:52 | NUR ---
Physical Therapy Impression Pt progressing well towards PT goals. Main complaint today is feeling of tiredness. PT instruction for use of 4WW with transfers and ambulation, pt with good use of brakes with min verbal cues. Ambulation x150' and 180' with SBA and improved tolerance demonstrated. Stair training in // bars with 5" step, pt with good tolerance to asc/desc step x6 repetitions and SBA. PT instruction for use of Nu-Step with goal of increasing bilateral knee ROM with AAROM and end range hold provided by pt, R) knee flexion was measured at 78 degrees and L) knee flexion at 80 degrees while on Nu-Step. Pt progressing well with PT interventions, continue with POC. Physical Therapy Goals 1: Pt to complete bed mobility with Penny 2: Pt to complete transfers with Penny and 4WW 3: Pt to ambulate 250' with Penny and 4WW 4: Pt to I)ly manage CPM 5: Pt to asc/desc 1 step with Penny 6: Pt to ambulate 10' on uneven surface with Penny 7: Pt to asc/desc 4 steps with Penny to simulate entry into nephew's home Patient's Goals
[2019-02-05 17:00] VITALS: BP 131/8
[2019-02-06] MEDS: DIAZEPAM 5 MG TAB PO PRN (03:34)
[2019-02-06] MEDS: SALMETEROL/FLUTIC 500/50 1 INH INH SCH ×2 (05:57→17:25)
[2019-02-06 07:29] VITALS: BP 125/84
[2019-02-06] MEDS: LISINOPRIL 20 MG TAB PO SCH (09:00)
[2019-02-06] MEDS: ASPIRIN 325 MG TAB PO SCH (09:13)
[2019-02-06] MEDS: CELECOXIB 200 MG CAP PO SCH (09:13)
[2019-02-06] MEDS: APAP/HYDROCODONE 325/7.5 TAB PO PRN ×2 (09:13→20:26)
--- NOTE | 2019-02-06 09:29 | NUR ---
Physical Therapy Impression Patient was concerned with swelling on right lateral knee and increased pain. Patient was educated that this was normal and that both knees look good and he is healing well. Patient instructed in gait training with 4WW with safety education to park against wall and lock brakes if he needs a seated rest break. Patient needed mod cues with posture with ambulaiton. Patient performed stairs in gym 4 stairs ascend and descned x two reps first rep step to with CGA 2nd rep step over step with CGA with a seated rest between sets. Patient ambulated back to room where manual therapy was performed on B knees into flexion and extension. Patient was left in bed with B LE"S elevated with IP on to reduce swelling. Nursing was also notified that PT was consulted and she agrees that both knees look normal and that they are healing well. PT educated patient on the importance of incorporating iron into his diet. Physical Therapy Goals 1: Pt to complete bed mobility with Penny 2: Pt to complete transfers with Penny and 4WW 3: Pt to ambulate 250' with Penny and 4WW 4: Pt to I)ly manage CPM 5: Pt to asc/desc 1 step with Penny 6: Pt to ambulate 10' on uneven surface with Penny 7: Pt to asc/desc 4 steps with Penny to simulate entry into nephew's home Patient's Goals
--- NOTE | 2019-02-06 11:09 | NUR ---
Left voicemail with Dr. Doshi's nurse r/t needing scripts.
[2019-02-06 15:40] VITALS: BP 130/82
[2019-02-07] MEDS: DIAZEPAM 5 MG TAB PO PRN ×2 (03:35→23:35)
[2019-02-07] MEDS: SALMETEROL/FLUTIC 500/50 1 INH INH SCH ×2 (05:53→17:25)
[2019-02-07 07:44] VITALS: BP 142/78
[2019-02-07] MEDS: LISINOPRIL 20 MG TAB PO SCH (08:45)
[2019-02-07] MEDS: ASPIRIN 325 MG TAB PO SCH (08:45)
[2019-02-07] MEDS: CELECOXIB 200 MG CAP PO SCH (08:45)
--- NOTE | 2019-02-07 09:30 | NUR ---
Physical Therapy Impression Patient is I with transfers and bed mobility. Patient is mod I with gait with verbal cues for posture. Patient is CGA ascending and descending stairs with step to gait with increased difficulty with descending. Patient is I with exercises and is able to push his flexion in B knees in sitting position and supine with heel slides but did have manual overpressure from therapist with heel slides and with quad sets to improve ROM. Patient understands HEP and is compliant and is ready to be d/c to home with OP PT to follow. Physical Therapy Goals 1: Pt to complete bed mobility with Penny 2: Pt to complete transfers with Penny and 4WW 3: Pt to ambulate 250' with Penny and 4WW 4: Pt to I)ly manage CPM 5: Pt to asc/desc 1 step with Penny 6: Pt to ambulate 10' on uneven surface with Penny 7: Pt to asc/desc 4 steps with Penny to simulate entry into nephew's home Patient's Goals
--- NOTE | 2019-02-07 11:56 | NUR ---
Occupational Therapy Impression Pt met OT goals yesterday. OT check in to ensure pt had no further OT goals to address. Pt alert, reporting no further questions/concerns to address with OT. Skilled OT goals met. Discharge OT services, pt agreeable. Occupational Therapy Goals 1) Pt will be Mod (I) UB/LB dressing. 2) Pt will be Mod (I) toilet task. 3) Pt will be Mod (I) grooming/hygiene standing. 4) Pt will be Mod (I) shower task with bathtub transfer. 5) Pt will be Mod (I) light meal prep task. 6) Pt Willow Index of ADLs score will improve by two points. Patient's Goal
--- NOTE | 2019-02-07 12:02 | OT ECF NOTE ---
Type of Note: Discharge Note Primary Medical Diagnosis: Generalized weakness s/p bilateral total knee replacements Occupational Therapy Evaluation Date: 02/01/19 SUBJECTIVE: Prior Hospitalization: [facility] 01/29/19-01/31/19 Prior Level of Function: Independent with all ADLs/IADLs. Ambulating with no assistive device. Occasional assist from family for transportation. Pt drives a manual. Prior Living Status: Single level house, Alone Community Services: No known needs Home Accessibility: One step into home All needs on one level Tub/shower combination Equipment Owned: Rollator-Pt reports tight space in home to navigate with 4WW Toilet riser Medical Complications/Past Medical History: HTN, COPD Psychosocial Support: Family in [place] where pt resides Pain Scale (0-10): No pain reported at time of discharge OBJECTIVE: Strength: MMT: Right Left Shoulder Flexion WFL WFL Elbow Flexion WFL WFL Wrist Extension WFL WFL Interior Wall Assembler WFL WFL (5= normal, 4= good, 3= fair, 2= poor, 1= trace) ROM: Both upper extremities, WFL Sensation: No paraesthesia reported Functional Transfer: Assistive Device: 4WW Transfer Ability: Modified Independent ADL: Upper body dressing: Assistive device: None Upper body dressing ability: Independent Lower body dressing: Assistive device: None Lower body dressing ability: Independent including donning/doffing of jailene hose Toileting: Assistive device: Raised toilet seat Toileting ability: Modified Independent Grooming/hygiene: Standing Assistive device: None Grooming ability: Independent Bathing: Assistive device: Shower chair Bathing ability: Modified Independent Standardized Assessment: Willow Index of Activities of Daily Livin/20 upon initial evaluation (01/31/19). 20/20 upon initial evaluation (02/07/19). ASSESSMENT: "Chance" presented to [facility] with decreased activity tolerance and independence for IADLs s/p bilateral total knee replacements. He has met all skilled OT goals and demonstrates Modified [place] with all ADLs/IADLs. Pt reports no further questions/concerns to address with OT at this time. Short Term Goals: 1) Pt will be Mod (I) UB/LB dressing. GOAL MET 2) Pt will be Mod (I) toilet task. GOAL MET 3) Pt will be Mod (I) grooming/hygiene standing. GOAL MET 4) Pt will be Mod (I) shower task with bathtub transfer. GOAL MET 5) Pt will be Mod (I) light meal prep task. GOAL MET 6) Pt Willow Index of ADLs score will improve by two points. 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 Thank you for this referral. If you have any questions, concerns, or comments about this report or plan, please contact me at . Connie Yu MS, OTR/L Occupational Therapist VINH
--- NOTE | 2019-02-07 14:18 | NUR ---
DC MDS completed with pt. C: 14. D: 06, E: no concerns, Q: pt plans to return to community, no referrals needed as pt is discharging home with OP rehab. Will continue to follow should needs arise.
[2019-02-07] MEDS ORDERED: ASPI-757 PO (15:25)
[2019-02-07] MEDS ORDERED: Acetaminophen/Hydrocodone PO (15:25)
[2019-02-07] MEDS ORDERED: LOR5/325 PO (15:27)
--- NOTE | 2019-02-07 15:29 | Hospitalist Depart ---
Discharge Summary Reason for Hosp/Final Diag: (1) Status post bilateral knee replacements Status: Acute Hospital Course & Plan: Bilateral TKAs with Dr. Doshi. He was placed on Aspirin for DVT prophylaxis. He has no history of DVT or PE. He had anemia post- operatively. He will follow up with PCP in 1-2 weeks with labs. (2) Hypertension Status: Chronic Hospital Course & Plan: He is on chronic treatment with Lisinopril/HCTZ. This has been restarted with hold parameters. (3) COPD (chronic obstructive pulmonary disease) Status: Chronic Hospital Course & Plan: Continue chronic Advair and prn albuterol inhaler. Departure Latest Vital Signs Vital Signs 02/07/19 02/07/19 07:44 08:15 Temp 98.1 Pulse 80 Resp 14 B/P (MAP) 142/78 (99) Pulse Ox 95 O2 Delivery Room Air Weight (Pounds): 201 Result Diagram: 02/05/19 0618 Condition: Improved Discharge: Home, Self Care Discharge Instructions Home Meds Active Scripts Hydrocodone Bit/Acetaminophen (HYDROCODON-ACETAMINOPHEN 5-325) 1 Each Tablet, 1- 2 EACH PO Q6H PRN for PAIN, #20 TAB Prov:LOURDES HYATTP 02/07/19 Aspirin (ASPIRIN) 325 Mg Tablet, 325 MG PO QDAY, #30 TAB Prov:LOURDES HYATTP 02/07/19 Reported Medications Albuterol Sulfate 90 Mcg/Act (PROAIR HFA 90 MCG/ACT) 8.5 Gm Hfa.aer.ad, 2 PUFF IH PRN PRN for SHORTNESS OF BREATH, INHALER 01/24/19 Fluticasone/Salmeterol (ADVAIR 500-50 DISKUS) 1 Each Disk.w.dev, 1 EACH IH BID 01/24/19 Lisinopril/Hydrochlorothiazide (LISINOPRIL-HCTZ 20-25 MG TAB) 1 Each Tablet, 1 EACH PO DAILY 01/24/19 Diet: Regular Activity: As Tolerated Special Instructions: Dr. Doshi Monday02/13/19 @ 1020. Pick-up scripts from [facility] pharmacy in [place]. Venous Thromboembolism Antithrombotics Is Pt On Any Antithrombotics?: No LOURDES HYATT [facility] Feb 07, 2019 15:29
--- NOTE | 2019-02-07 17:08 | NUR ---
ACTIVITIES: Pt. interested in woody, changed mind to [place], played one game for about 1 hour with me. Talked on phone with dakota about discharge plans for tomorrow.
[2019-02-07 17:43] VITALS: BP 136/76
[2019-02-07] MEDS: APAP/HYDROCODONE 325/7.5 TAB PO PRN (19:06)
[2019-02-08] MEDS: SALMETEROL/FLUTIC 500/50 1 INH INH SCH (05:38)
[2019-02-08] MEDS: APAP/HYDROCODONE 325/7.5 TAB PO PRN (06:38)
[2019-02-08 07:20] VITALS: BP 118/79
[2019-02-08] MEDS: LISINOPRIL 20 MG TAB PO SCH ×2 (08:46→08:55)
[2019-02-08] MEDS: ASPIRIN 325 MG TAB PO SCH (08:51)
[2019-02-08] MEDS: CELECOXIB 200 MG CAP PO SCH (08:51)
[2019-02-08] MEDS ORDERED: HYDROCHLOROTHIAZIDE 25 MG TAB PO SCH (09:00)
--- NOTE | 2019-02-08 16:09 | PT ECF NOTE ---
Type of Note: Discharge Summary Primary Medical Diagnosis: Bilateral TKA Physical Therapy Discharge Date: 02/08/2019 SUBJECTIVE: Prior Hospitalization: 01/26/2019-01/31/2019 Prior Level of Function: I) with no AD Prior Living Status: Pt reports 1 step to enter home, he lives alone Home Accessibility: One step to enter Equipment Owned: Pt owns 4WW Medical Complications/Past Medical History: See EMR Psychosocial Support: Supportive friends, lives alone OBJECTIVE: Strength: Right Lower Extremity: DF: wnl Knee flexion: <3/5 Knee extension: <3/5 Hip flexion: >3/5 Left Lower Extremity: DF: wnl Knee flexion: <3/5 Knee extension: <3/5 Hip flexion: >3/5 Bed Mobility: Independent Transfers: Courtney with 4WW Gait: Courtney x 250' with 4WW Stairs: Courtney x 1 stair, CGA x4 stairs ASSESSMENT: Pt met PT goals and is safe to d/c home from a mobility stand point. He demonstrates Courtney for bed mobility, transfers and ambulation as well as platform stair negotiation. It is recommended that he use 4WW for mobility and continue with OP PT services. Problem List/Current Limitations: Pain, decreased ROM, decreased strength, decreased balance, decreased activity tolerance Short Term Goals: (met, see below) 1: Pt to complete bed mobility with Courtney 2: Pt to complete transfers with Courtney and 4WW 3: Pt to ambulate 250' with Courtney and 4WW 4: Pt to I)ly manage CPM 5: Pt to asc/desc 1 step with Courtney 6: Pt to ambulate 10' on uneven surface with Courtney 7: Pt to asc/desc 4 step with Courtney to simulate entry into nephew's home (partially met, CGA) Hot Room Attendant Goals: Discharge home with OP PT services (met) Patient Goals: " Discharge home with adequate independence to do OP therapy" (met) PLAN: The patient discharged home with assist from family if needed and OP PT services. Thank you for this referral. If you have any questions, concerns, or comments about this report or plan, please contact me at . Belkys Kelly, PT, DPT MTDD
== END 2019-02-08 10:07 | disposition home or self-care (01) | DRG 561 ==
LOC: ECF 11:26
PROVIDERS: ADMIT Internal Medicine; ATTEND Internal Medicine
DX: Z47.1 Aftercare following joint replacement surgery (principal); I10 Essential (primary) hypertension; J44.9 Chronic obstructive pulmonary disease, unspecified
CPT/HCPCS: 36415; 85025; 94640; 97161; 97165